=== PATIENT | female | born 1960 | race Caucasian/White ===

== ENCOUNTER 2016-07-11 18:48 | Emergency (ER) | payer BC, OTHER ==
[2016-07-11 19:04] VITALS: BP 129/85
--- NOTE | 2016-07-11 20:05 | EDM.PDOC ---
ED HPI Trauma - General Chief Complaint: Upper Extremity Injury/Pain Stated Complaint: INJURY TO RIGHT HAND Time Seen by Provider: 07/11/16 18:52 Source: Reports: Patient History Limitations: Reports: No limitations - History of Present Illness INITIAL COMMENTS - FREE TEXT/NARRATIVE: The patient was up on a ladder changing a light bulb outside and she slipped coming down and landed on her right hand. Her hand went into some palets. She has no other injuries. She is right handed. Occurred When: just prior to arrival Occurred Where: home Method of Injury: fall Severity: moderate Pain/Injury Location: Reports: upper extremity, right (Hand) Consciousness: Reports: no loss of consciousness Associated Symptoms: Reports: no other symptoms Allergies/ADRs: Allergies bee venom protein (honey bee) Allergy (Verified 07/11/16 19:05) Anaphylactic Shock Penicillins Allergy (Verified 07/11/16 19:05) Rash Home Medications: Ambulatory Orders EPINEPHrine [Epipen 2-Toby] 1 dose IM ASDIRECTED PRN 07/11/16 [Confirmed 07/11/16 ] Multivitamin [One Daily Multivitamin] 1 each PO DAILY 07/11/16 [Confirmed ] Past Medical History - Past Health History Medical/Surgical History: Denies Medical/Surgical History HEENT History: Reports: Impaired vision Musculoskeletal History: Reports: Other (see below) Other Musculoskeletal History: ganglion cyst - Past Surgical History Musculoskeletal Surgical History: Reports: Ganglion cyst Social & Family History - Family History Family Medical History: Noncontributory - Tobacco Use Smoking Status *Q: Never Smoker Second Hand Smoke Exposure: No - Caffeine Use Caffeine Use: Reports: Coffee, Soda - Recreational Drug Use Recreational Drug Use: No Review of Systems - Review of Systems Review Of Systems: See Below Constitutional: Reports: no symptoms Eyes: Reports: no symptoms Ears: Reports: no symptoms Nose: Reports: no symptoms Mouth/Throat: Reports: no symptoms Respiratory: Reports: No Symptoms Cardiovascular: Reports: no symptoms GI/Abdominal: Reports: No symptoms Musculoskeletal: Reports: other (Right hand pain) Trauma Exam - Physical Exam Exam: See Below Exam Limited By: No limitations General Appearance: Reports: alert, no apparent distress Head: Reports: atraumatic, normocephalic Ears: Reports: normal external exam Nose: Reports: normal inspection Neck: Reports: non-tender Respiratory Exam: Reports: no respiratory distress Extremities: Reports: other (Pain upon palpation at the base of the right thumb. Pain upon palpation to the right 5th finger.) Course - Vital Signs Last Recorded V/S: Last Vital Signs Temp 98.6 F 07/11/16 18:55 Pulse 70 07/11/16 18:55 Resp 18 07/11/16 18:55 BP 129/85 07/11/16 18:55 Pulse Ox 100 07/11/16 18:55 - Orders/Labs/Meds Orders: Active Orders 24 hr Category Date Time Status Hand Comp Min 3V Rt [CR] Stat Exams 07/11/16 19:17 Taken - Re-Assessments/Exams Free Text/Narrative Re-Assessment/Exam: 07/11/16 20:02 Her x-ray looks good. I will give her a splint and a note for work. Departure - Departure Time of Disposition: 20:05 Disposition: Home, Self-Care 01 Condition: good Clinical Impression: Fall Qualifiers: Encounter type: initial encounter Qualified Code(s): W19.XXXA - Unspecified fall, initial encounter Sprain of right hand Qualifiers: Encounter type: initial encounter Qualified Code(s): S63.91XA - Sprain of unspecified part of right wrist and hand, initial encounter Referrals: Stefany Carrasco [Physician] - 1 Week (If not better) Forms: ED Department Discharge, Return to Work/School Form Additional Instructions: Ice your hand for 15 minutes every other hour while awake for 2 days. Try to elevate your hand above your heart as much as you can for 2 days. Follow up with Dr Carrasco if you are not better in 1 week. - My Orders Last 24 Hours: My Active Orders 07/11/16 19:17 Hand Comp Min 3V Rt [CR] Stat - Assessment/Plan Last 24 Hours: My Active Orders 07/11/16 19:17 Hand Comp Min 3V Rt [CR] Stat
--- NOTE | 2016-07-12 08:01 | CR ---
Right hand: Four views of the right hand were obtained. Comparison: No previous hand study is available. Joint spaces are preserved. Small sclerotic lesions which are compatible with incidental bone islands are noted within the distal proximal phalanx of the fourth finger, distal metacarpal heads within the second and fifth digits as well as within the distal radius. No acute fracture, dislocation or other bony abnormality is seen. Impression: 1. Incidental bone islands. Nothing acute is identified on right hand study. Diagnostic code #2
== END 2016-07-11 20:20 | disposition home or self-care (01) ==
LOC: JD.ED 18:48
DX: S63.91XA Sprain of unspecified part of right wrist and hand, initial encounter (principal); W19.XXXA Unspecified fall, initial encounter; Z88.0 Allergy status to penicillin; Z79.899 Other long term (current) drug therapy
CPT/HCPCS: 73130-26-RT; 73130-RT; 99282; 99283

== ENCOUNTER 2019-09-17 10:00 | Day surgery (SDC) | payer BC ==
[~2019-09-17 10:00] MED LIST: Lactated Ringers 1,000 ML IV SCH; Lidocaine 1%/Sod Bicarbonate in NS 8.4% 1 ML Syringe IDERM PRN
--- NOTE | 2019-09-17 10:55 | PCM.PREANE ---
Preanesthetic Assessment - Procedure Proposed Procedure: Incision Drainage - Anesthesia/Transfusion/Family Hx Anesthesia History: Prior Anesthesia Without Reaction Family History of Anesthesia Reaction: No - Review of Systems General: No Symptoms Pulmonary: No Symptoms Cardiovascular: No Symptoms, Other (History of abnormal EKG. Negative Stress test and ECHO done. Luz Elena has never had cardiac symptoms/signs. ) Gastrointestinal: No Symptoms (History of GERD, occasional prilosec use. ) Neurological: No Symptoms Other: Reports: None (Sesonal allergies, not botherin her much today. ) - Physical Assessment NPO Status Date: 09/16/19 NPO Status Time: 22:30 Vital Signs: 99 F 95/77 68 16 97% Weight: 51 kg ASA Class: 2 Mental Status: Alert & Oriented x3 Airway Class: Mallampati = 2 Dentition: Reports: Normal Dentition Thyro-Mental Finger Breadths: 3 Mouth Opening Finger Breadths: 3 ROM/Head Extension: Full Lungs: Clear to Auscultation, Normal Respiratory Effort Cardiovascular: Regular Rate, Regular Rhythm - Allergies Allergies/Adverse Reactions: Allergies Allergy/AdvReac Type Severity Reaction Status Date / Time bee venom protein (honey bee) Allergy Anaphylactic Verified 07/11/16 19:05 Shock Penicillins Allergy Rash Verified 07/11/16 19:05 - Acknowledgements Anesthesia Type Planned: General Anesthesia Pt an Appropriate Candidate for the Planned Anesthesia: Yes Alternatives and Risks of Anesthesia Discussed w Pt/Guardian: Yes Pt/Guardian Understands and Agrees with Anesthesia Plan: Yes PreAnesthesia Questionnaire - Past Health History Medical/Surgical History: Denies Medical/Surgical History HEENT History: Reports: Impaired Vision Musculoskeletal History: Reports: Other (See Below) Other Musculoskeletal History: ganglion cyst - Past Surgical History Musculoskeletal Surgical History: Reports: Ganglion Cyst - HOME MEDS Home Medications: Home Meds EPINEPHrine [Epipen 2-Toby] 1 dose IM ASDIRECTED PRN 07/11/16 [History] Multivitamin [One Daily Multivitamin] 1 each PO DAILY 07/11/16 [History]
[2019-09-17] MEDS ORDERED: Bupivacaine 0.5%/EPINEPHrine 1:200,000 50 ML MDV ONE (11:09)
[2019-09-17] MEDS ORDERED: Propofol 200 MG/20 ML SDV ONE (12:24)
[2019-09-17] MEDS ORDERED: fentaNYL 100 MCG/2 ML SDV ONE (12:24)
[2019-09-17] MEDS ORDERED: Ondansetron 4 MG/2 ML SDV IVPUSH PRN ×2 (13:06→13:35)
[2019-09-17] MEDS ORDERED: HYDROmorphone 0.5 MG/0.5 ML Syringe IVPUSH PRN (13:06)
[2019-09-17] MEDS ORDERED: fentaNYL 100 MCG/2 ML SDV IVPUSH PRN ×2 (13:06→13:35)
--- NOTE | 2019-09-17 13:31 | PCM.PRNOTE ---
- Free Text/Narrative Note: Date: 09/17/2019 Operation: incision and drainage of right groin abscess, left thigh abscess Surgeon: Charli Pulliam MD Assisting: Jamil COREY Findings: minimal pus drained from either site. Cultures obtained. Loculations broken up and wound beds gently debrided prior to gauze packing and dressing. Detailed Report: Patient was taken to the operating room and placed in supine position. Monitored anesthesia care was initiated. The patient was positioned in frog- leg position, and iodine solution was applied for prep. The patient was draped sterilely, and timeout was performed. A total of 11 cc of 0.5% Marcaine with epinephrine was injected around the abscesses. The 11 blade was used to make a longitudinal stab incision along the area of raised induration at the right groin. Minimal fluid was drained from this area. Cultures were obtained, and a hemostat was used to break up some of the induration and loculations within the wound bed. The area appeared well vascularized, with minimal necrotic debris, and minimal pus. The incision was then cut in cruciate manner, with corner edges of skin removed. Moist Kerlix was gently packed into the wound bed , and a dressing of gauze and tape was applied. Similarly, a stab incision was made at the left thigh abscess. Approximately 5 cc of thin purulent fluid was drained. Cultures were obtained, and a cruciate incision was made with skin corners removed. Hemostat was used to bust up loculations, and the wound was gently debrided with gauze. Again, the tissue in the wound base appeared well perfused, with no necrotic debris or significant pus. The wound was packed with moistened Kerlix and dressed with gauze and tape. The patient tolerated the procedure well, no complications. Charli Pulliam MD General Surgery
--- NOTE | 2019-09-17 13:35 | PCM48HPAN ---
Post Anesthesia Note - EVALUATION WITHIN 48HRS OF ANESTHETIC Vital Signs in Normal Range: Yes Patient Participated in Evaluation: Yes Respiratory Function Stable: Yes Airway Patent: Yes Cardiovascular Function Stable: Yes Hydration Status Stable: Yes Pain Control Satisfactory: Yes Nausea and Vomiting Control Satisfactory: Yes Mental Status Recovered: Yes Vital Signs: Last Vital Signs Temp 37.2 C 09/17/19 10:15 Pulse 68 09/17/19 10:15 Resp 16 09/17/19 10:15 BP 95/77 09/17/19 10:15 Pulse Ox 97 09/17/19 10:15
[2019-09-17 14:15] VITALS: BP 111/72; PULSE 64
== END 2019-09-17 14:14 | disposition home or self-care (01) ==
LOC: JD.SDS 10:00
PROVIDERS: ATTEND Surgery
DX: L03.116 Cellulitis of left lower limb (principal); L03.115 Cellulitis of right lower limb; L02.416 Cutaneous abscess of left lower limb; L02.415 Cutaneous abscess of right lower limb; L02.31 Cutaneous abscess of buttock; B95.62 Methicillin resistant Staphylococcus aureus infection as the cause of diseases classified elsewhere; K21.9 Gastro-esophageal reflux disease without esophagitis; Z20.828 Contact with and (suspected) exposure to other viral communicable diseases; Z88.0 Allergy status to penicillin; Z91.030 Bee allergy status; Z79.82 Long term (current) use of aspirin; Z79.899 Other long term (current) drug therapy
CPT/HCPCS: 10061; 87075; 87077; 87186; 87205; 93005; J2001; J2704; J3010; J3490; J7120